=== PATIENT | female | born 1975 | race Caucasian/White ===

== ENCOUNTER 2023-01-28 13:09 | Outpatient (CLI) | payer OTHER, SELFPAY ==
--- NOTE | 2023-01-28 13:20 | CRLHL7_ITS ---
For Patients: As a result of the Century Cures Act, medical imaging exams and procedure reports are released immediately into your electronic medical record. You may view this report before your referring provider. If you have questions, please contact your health care provider. BILATERAL SCREENING MAMMOGRAM WITH COMPUTER-AIDED DETECTION AND TOMOSYNTHESIS TECHNIQUE: CC and MLO views were obtained. These mammographic images have been obtained using full-field digital technique. These mammographic images were interpreted with the benefit of computer-aided detection. Breast Tomosynthesis was used in this interpretation. COMPARISON FILM: 05/15/21, 05/13/20, 04/25/19. FINDINGS: The breasts are heterogeneously dense, which may obscure small masses IMPRESSION: There is no radiographic evidence for malignancy. ASSESSMENT: BI-RADS Category 1: Negative RECOMMENDATION: Routine screening mammogram in 1 year. A lay language report of this examination will be provided to the patient. David Medeiros M.D. Diagnostic Radiologist [email or web address] DAVID/Dictated by: David Medeiros MD @ 01/31/2023 11:39:00 AM (Electronically Signed)
== END 2023-01-28 13:10 | disposition home or self-care (01) ==
LOC: MAMMO 13:10
PROVIDERS: PCP Family Medicine; Visit Provider Family Medicine
DX: Z12.31 Encounter for screening mammogram for malignant neoplasm of breast (principal); R92.2 Inconclusive mammogram
CPT/HCPCS: 77063; 77067

== ENCOUNTER 2024-02-07 17:41 | Outpatient (CLI) | payer OTHER, SELFPAY ==
--- NOTE | 2024-02-07 18:00 | MM_ITS ---
Patient: TAMIKA DUMONT Facility:?[facility] Patient ID:?[id number] Site Patient ID:?[id number]. Site :?[id number] Study:?XRay-Breast Bilateral 3D screening mammogram w/cad-02/07/2024 6:02:10 PM Ordering Physician:Zandra Final Report: BILATERAL SCREENING MAMMOGRAM WITH COMPUTER-AIDED DETECTION AND TOMOSYNTHESIS TECHNIQUE: CC and MLO views were obtained. These mammographic images have been obtained using full-field digital technique. These mammographic images were interpreted with the benefit of computer-aided detection. Breast Tomosynthesis was used in this interpretation. COMPARISON FILM: 01/28/23, 05/15/21, 05/13/20. FINDINGS: The breasts are heterogeneously dense, which may obscure small masses IMPRESSION: There is no radiographic evidence for malignancy. ASSESSMENT: BI-RADS Category 2: Benign RECOMMENDATION: Routine screening mammogram in 1 year. A lay language report of this examination will be provided to the patient. David Medeiros M.D. Diagnostic Radiologist [email or web address] VARUN/mel R& Transcribed: 5:17 p.m. DAVID/Dictated by: David Medeiros MD @ 02/09/2024 1:20:00 PM Signed by:?David Medeiros MD @02/09/2024 8:29:58 PM (Electronic Signature)
== END 2024-02-07 17:42 | disposition home or self-care (01) ==
LOC: MAMMO 17:42
PROVIDERS: PCP Family Medicine; Visit Provider Family Medicine
DX: Z12.31 Encounter for screening mammogram for malignant neoplasm of breast (principal); R92.2 Inconclusive mammogram
CPT/HCPCS: 77063; 77067

== ENCOUNTER 2025-01-18 11:04 | Outpatient (CLI) | payer OTHER, SELFPAY | END 2025-01-18 11:05 | disposition home or self-care (01) | LOC: NFLDREF 01-22 18:09 | PROVIDERS: PCP Family Medicine; Referring Provider Family Medicine; Visit Provider Family Medicine | DX: R51.9 Headache, unspecified (principal); G89.29 Other chronic pain; Z83.79 Family history of other diseases of the digestive system | CPT/HCPCS: 86231; 86258; 86364 ==

== ENCOUNTER 2025-02-28 15:08 | Outpatient (CLI) | payer OTHER, SELFPAY ==
--- NOTE | 2025-02-28 15:20 | CRLHL7_ITS ---
For Patients: As a result of the Century Cures Act, medical imaging exams and procedure reports are released immediately into your electronic medical record. You may view this report before your referring provider. If you have questions, please contact your health care provider. INDICATION: BILATERAL SCREENING MAMMOGRAM, ASYMPTOMATIC 49 Y/O FEMALE COMPARISON: 02/07/2024, 01/28/2023, 05/15/2021 TECHNIQUE: Digital mammogram in CC and MLO projections including computer-aided detection (CAD) and tomosynthesis. BREAST COMPOSITION: The breasts are heterogeneously dense, which may obscure small masses. FINDINGS: No suspicious findings. ASSESSMENT: BI-RADS 2 Benign RECOMMENDATION: Annual screening mammogram. A lay language report of this examination will be provided to the patient. Dictated by: David Medeiros MD @ 03/01/2025 12:56:51 (Electronically Signed)
== END 2025-02-28 15:09 | disposition home or self-care (01) ==
PROVIDERS: PCP Family Medicine; Visit Provider Family Medicine
DX: Z12.31 Encounter for screening mammogram for malignant neoplasm of breast (principal); R92.333 Mammographic heterogeneous density, bilateral breasts
CPT/HCPCS: 77063; 77067

== ENCOUNTER 2025-04-24 15:14 | Outpatient (CLI) | payer OTHER, SELFPAY ==
--- NOTE | 2025-04-24 15:30 | MR_ITS ---
EXAM: MRI of the RIGHT KNEE, without contrast CLINICAL INFORMATION: Female, 50 years old, with right knee pain. INDICATION: Evaluate for ACL tear. PRIOR SURGERY: None reported. PLAIN FILMS: None available. COMPARISONS: No prior MRIs available. TECHNICAL INFORMATION: Using a 1.5T MR scanner and a localizing surface coil: sagittals: PD, PDFS coronals: PD, T2FS axials: PD, PDFS SEDATION: None CONTRAST: None FINDINGS: Knee joint: Effusion: Mild-moderate right knee effusion. Popliteal cyst: Tiny, unruptured popliteal (Renner's) cyst. Loose bodies: None. Subcutaneous and extra-articular soft tissues: Unremarkable. Ligaments: ACL: Full-thickness disruption of the ACL (sagittal PDFS series 9 images 14 & 15 and axial T2FS series 4 image 16). PCL: Intact PCL, without acute or chronic injury. MCL: Intact MCL superficial and deep layers, without injury. LCL: Intact LCL, without injury. Posterolateral corner: No posterolateral corner soft tissue injury. Popliteus, biceps femoris, iliotibial band, popliteofibular ligament and lateral gastrocnemius are intact. Posteromedial corner: No posteromedial corner soft tissue injury. Semimembranosus, pes anserine tendons and posterior oblique ligament are without injury, tendinopathy or bursitis. Extensor mechanism: Patellar tendon: Intact, without tendinopathy. Quadriceps tendon: Intact, without tendinopathy. Retinacula: Medial and lateral retinacula are intact. Fat pads: Unremarkable infrapatellar Hoffa's, quadriceps and prefemoral fat pads. Medial compartment: Medial meniscus: Full thickness radial tearing of the posterior root the medial meniscus measuring 9 mm (sagittal PDFS series 9 images 16-18). Meniscal extrusion measures 5 mm. Medial femoral condyle & tibial plateau: Broad-based grade II chondromalacia throughout the central, weightbearing aspect of the medial compartment, with minimal marginal osteophytosis. Lateral compartment: Lateral meniscus: No articular surface, meniscosynovial junction or root tear. No displacement, extrusion or parameniscal cyst. Lateral femoral condyle: No chondromalacia or osteochondral abnormality. Lateral tibial plateau: No chondromalacia or osteochondral abnormality. Patellofemoral joint: Patella: No chondromalacia or osteochondral abnormality. Trochlea: No chondromalacia or osteochondral abnormality. Proximal tibiofibular joint: Unremarkable, without evidence of ligament sprain injury, joint effusion or adjacent marrow edema. Bones: Mild edema-like signal is present throughout the posterior aspect of the medial tibial plateau. IMPRESSION: 1. Full thickness disruption of the ACL with associated contusion of the posterior medial tibial plateau. 2. Full-thickness radial tear of the medial meniscal posterior measuring 9 mm, with 5 mm of meniscal extrusion. 3. Minimal osteoarthritis of the medial compartment. 4. Mild-moderate knee joint effusion with a tiny, unruptured popliteal (Renner's) cyst. 5. No PCL, MCL, or LCL sprain/tear. 6. No lateral meniscal tear. 7. No osteochondral abnormality of the lateral or patellofemoral compartment. BC Electronically signed on 04/25/2025 10:11:00 AM by Greg López M.D.
== END 2025-04-24 15:15 | disposition home or self-care (01) ==
LOC: MRI 15:15
PROVIDERS: PCP Family Medicine; Visit Provider Orthopaedic Surgery Sports Medicine
DX: M25.561 Pain in right knee (principal); S83.511A Sprain of anterior cruciate ligament of right knee, initial encounter; S83.206A Unspecified tear of unspecified meniscus, current injury, right knee, initial encounter; M25.461 Effusion, right knee; M71.21 Synovial cyst of popliteal space [Baker], right knee
CPT/HCPCS: 73721

== ENCOUNTER 2025-05-13 17:15 | Outpatient (CLI) | payer OTHER, SELFPAY | END 2025-05-13 17:16 | disposition home or self-care (01) | PROVIDERS: PCP Family Medicine; Visit Provider Physician Assistant | DX: E55.9 Vitamin D deficiency, unspecified (principal); L65.9 Nonscarring hair loss, unspecified; R41.89 Other symptoms and signs involving cognitive functions and awareness | CPT/HCPCS: 83001; 84443 ==

== ENCOUNTER 2025-08-21 08:06 | Day surgery (SDC) | payer OTHER, SELFPAY ==
[2025-08-21] VITALS (15 sets, daily range): BP systolic 96–137; BP diastolic 65–95; PULSE 61–101; RESP 16–21; TEMP 36.3–37.3; O2SAT 96–100; BMI 29.9
--- NOTE | 2025-08-21 08:55 | W.PM.H&PU ---
History & Physical Update History & Physical Update H&P Reviewed and patient assessed: No changes noted
--- NOTE | 2025-08-21 09:29 | P.ANES_ITS ---
Anesthesia Charges Start Date/Time Anesthesia Start Date: 08/21/25 Anesthesia Start Time: 10:01 Stop Date/Time Anesthesia Stop Date: 08/21/25 Anesthesia Stop Time: 12:10 Coding CPT Codes CPT Codes: ANESTH KNEE JOINT SURGERY - 95870 ([id number]) P2 - PATIENT W/MILD SYST DISEASE, QK - CONCRETE BUSTER OPERATOR 2-4 CNCRNT ANES PROC, QX - GRITTING MACHINE OPERATOR SVC W/ MD MED DIRECTION
--- NOTE | 2025-08-21 09:29 | W.ANESCHARGE ---
Anesthesia Charges Start Date/Time Anesthesia Start Date: 08/21/25 Anesthesia Start Time: 10:01 Stop Date/Time Anesthesia Stop Date: 08/21/25 Anesthesia Stop Time: 12:10 Coding CPT Codes CPT Codes: ANESTH KNEE JOINT SURGERY - 47707 ([id number]) P2 - PATIENT W/MILD SYST DISEASE, QK - ENGINEERING INSTRUCTOR 2-4 CNCRNT ANES PROC, QX - DRY ROLLER SVC W/ MD MED DIRECTION
[2025-08-21] MEDS: LACTATED RINGERS 1000 ML 1,000 ML 100 ML IV ×2 (09:36→11:25)
[2025-08-21] MEDS: SODIUM CHLORIDE 0.9 % (FLUSH) 10 ML SYRINGE IVF (09:37)
[2025-08-21] MEDS: MIDAZOLAM HCL 1 MG/ML inj IVP (09:49)
--- NOTE | 2025-08-21 10:02 | SUR.PREOP ---
TIME?OUT:?0949 PT/RN/MDA?VERIFICATION?OF?SURGICAL?SITE,?PROCEDURE,?AND?CONSENT OBTAINED?PRIOR?TO?INVASIVE?PROCEDURE.
--- NOTE | 2025-08-21 11:49 | W.PM.NB ---
Nerve Block Nerve Block Time Seen by Provider: 09:55 Date Seen: 08/21/25 Type of block requested by surgeon for post-operative analgesia: popliteal Side: right Time out performed: Yes Verification of patient name: Yes Verification of date of : Yes Site marking: site marked Name of person performing procedure: Florentin Continuous monitoring Was continuous monitoring of O2 sat, B/P, laboratory monitor, recorded every 15 minutes?: Yes Procedure Checklist: sterile prep, needles and gloves Ultrasound guided. Images saved: Yes Medications given in 5ml increments after negative aspiration: Marcaine %: 0.25 mL: 17 Needle gauge: 22 and Exparel mL: 3 Patient tolerated procedure well: Yes Additional comments: Needle noted adjacent to nerve Block Charges Block Charge (with Pro Fee): Sciatic Nerve Use of Ultrasound Machine for Block: Yes- US Guidance/pain block
--- NOTE | 2025-08-21 11:50 | W.PM.NB ---
Nerve Block Nerve Block Time Seen by Provider: 09:55 Date Seen: 08/21/25 Type of block requested by surgeon for post-operative analgesia: adductor canal Side: right Time out performed: Yes Verification of patient name: Yes Verification of date of : Yes Site marking: site marked Name of person performing procedure: Florentin Continuous monitoring Was continuous monitoring of O2 sat, B/P, radiation monitor, recorded every 15 minutes?: Yes Procedure Checklist: sterile prep, needles and gloves Ultrasound guided. Images saved: Yes Medications given in 5ml increments after negative aspiration: Marcaine %: 0.25 mL: 10 Needle gauge: 20 and Exparel mL: 7 Patient tolerated procedure well: Yes Block Charges Block Charge (with Pro Fee): Femoral Nerve Use of Ultrasound Machine for Block: Yes- US Guidance/pain block
--- NOTE | 2025-08-21 11:54 | PM.ORPRC ---
Procedure Note Date of procedure: 08/21/25 Procedure: PREOPERATIVE DIAGNOSIS: 1. Right knee ACL tear 2. Right knee medial meniscus posterior root tear POSTOPERATIVE DIAGNOSIS: 1. Right knee ACL tear 2. Right knee medial meniscus posterior root tear PROCEDURE: 1. Right knee arthroscopically assisted ACL reconstruction with graftlink allograft 2. Right knee arthroscopic medial meniscus posterior root repair 3. Intraoperative fluoroscopy operated and interpreted by Fernando Shi M.D. for intraoperative evaluation of femoral button positioning. Fluoroscopy time was 2 seconds. SURGEON: Fernando Shi M.D. QUEBRACHO TANNER: Prakash HUDSON; Andres Lerma PA-C. Of note, an food and beverage assistant was critical for this case to aid in patient positioning, knee manipulation, instrument exchange, and closure. ANESTHESIA: Spinal plus femoral nerve block EBL: 10 mL TOURNIQUET: 90 minutes at 250 torr IMPLANTS: Arthrex femoral tight rope button and tibial ABS button along with a backup on the tibial fixation with a 4.75 mm peek swivelock suture anchor; For medial meniscus root repair, Arthrex Suturelok (x1) COMPLICATIONS: None evident INDICATIONS: The patient is a pleasant 50-year-old female. They have experienced a right knee injury resulting in knee instability. MRI was obtained and confirmed complete ACL disruption, consistent with the physical exam. The MRI also suggested a posterior root medial meniscus tear with some extrusion. Given the findings, as well as the patient's desire to remain physically active with cutting/pivoting type activities, surgery was recommended. FINDINGS: Exam under anesthesia revealed positive Natalee's grade 2 B. Thud-clunk pivot shift. Stable posterior drawer. Stable to varus and valgus stress at 0 and 30?. The diagnostic arthroscopy showed posterior root medial meniscus tear that was nearly complete with some subtle capsular attachments still. Unstable posterior root excessive extrusion into the joint compartment. 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 Grade 2 chondromalacia patellofemoral. Intact PCL. Intact lateral meniscus. DESCRIPTION OF PROCEDURE: After a thorough discussion of risks, benefits, and alternatives, the patient was brought to the operating room and placed upon the operating table. Induction of anesthesia was undertaken as previously noted. 1 g IV Ancef was administered within 1 hr of incision preoperatively. Appropriate time-out was performed identifying proper patient, site, and procedure. The right lower extremity was prepped and draped in the appropriate sterile fashion using ChloraPrep. The limb was exsanguinated and tourniquet inflated. Anterolateral and anteromedial portals were established with an 11 blade, and a diagnostic arthroscopy was performed. This identified the findings as noted above. Following the diagnostic arthroscopy, the medial meniscal root was debrided with a 4.0 mm torpedo shaver and arthroscopic rasp to freshen the meniscal edge. This also allowed us to debride some the synovium and the tibial surface. The drill guide was utilized, a drill pin passed, and after confirming proper positioning, the stylus was removed and a Nitinol wire passed through the cannulated drill bit. This allowed us to shuttle a FiberLink. The FiberLink then allows to shuttle the Sutureloc device. After passing this and back loading it to confirm secure holding within the proximal tibia, 1 of the suture tails was passed in a vertical mattress fashion through the meniscus. This was done by passing 1 of the tails through followed by the FiberLink loop through and allowing this to shuttle that original suture back down through the meniscus. This was then shuttled through its respective link in the Sutureloc device. Prior to securing this fully, the 2nd suture was passed slightly more lateral allowing a rip-stop type of configuration. Thereafter, the knee was cycled multiple times and the sutures were re-tensioned. Excellent reapproximation of the meniscus was achieved. We then turned our attention to the ACL reconstruction: The graft had been thawing on the back table inside the package in warm saline. Once this was properly thawed, it was prepared with the passing sutures and the femoral tight rope button. It was then placed on tension, and sized. It was approximately a 10 mm diameter graft. While the graft was being prepared, simultaneously, the remaining ACL stump was debrided with a combination of shaver and basket forceps. After evaluating the current fibers of the existing ACL stump, we drilled the tunnels in an independent manner for anatomic tunnel positioning. A 10 mm flip cutter was utilized for the femoral tunnel and for the tibial tunnel. After preparing the graft and drilling tunnels, the graft was passed without difficulty and the femoral button was directly visualized to exit the femoral tunnel and the button was flipped. C-arm fluoroscopic imaging confirmed proper flipping of the femoral button and was apposed against the femoral cortex. The knee was then cycled 35+ times with tension on the graft. The internal brace sutures were secured with a 4.75 mm peek SwiveLock suture anchor. Thereafter, the tibial ABS button was then placed, and the tibial sutures secured over this with the knee in full extension. The white sutures were tied over top of the button. Excellent tension on the graft was achieved. A Natalee test was performed again, and found to be stable grade 1A. The graft was reprobed on the inside of the knee and again found to be taut and stable. At this stage, closure was performed with 2-0 Vicryl and 4-0 Monocryl to close the subcutaneous and subcuticular layers, respectively. Dressings were applied, tourniquet deflated, and the T scope hinged knee brace was applied. The patient was awoken from anesthesia and transferred to the PACU in stable condition. PLAN: 1. Toe-touch weightbear operative extremity until quad control has been restored. Crutch / walker ambulation assistance PRN. 2. Ice, acetaminophen and/or ibuprofen, and Oxycodone for pain as needed. 3. Knee range of motion and quad sets/straight leg raise regularly 4. Follow up with PA visit in 1-2 weeks for a wound check.
--- NOTE | 2025-08-21 12:25 | P.ANES_ITS ---
Anesthesia Charges Start Date/Time Anesthesia Start Date: 08/21/25 Anesthesia Start Time: 10:01 Stop Date/Time Anesthesia Stop Date: 08/21/25 Anesthesia Stop Time: 12:10 Coding CPT Codes CPT Codes: ANESTH KNEE JOINT SURGERY - 49325 ([id number]) QK - MEDIA PRODUCER 2-4 CNCRNT ANES PROC, QX - BYPRODUCTS EXTRACTOR SVC W/ MED DIRECTION
--- NOTE | 2025-08-21 12:25 | W.ANESCHARGE ---
Anesthesia Charges Start Date/Time Anesthesia Start Date: 08/21/25 Anesthesia Start Time: 10:01 Stop Date/Time Anesthesia Stop Date: 08/21/25 Anesthesia Stop Time: 12:10 Coding CPT Codes CPT Codes: ANESTH KNEE JOINT SURGERY - 10076 ([id number]) QK - LEAD SPRINKLER 2-4 CNCRNT ANES PROC, QX - TIME CLOCK REPAIRER SVC W/ MED DIRECTION
--- NOTE | 2025-08-21 13:54 | SUR.PHASEII ---
PT in room with patient for crutch training.
== END 2025-08-21 14:26 | disposition home or self-care (01) ==
LOC: OR 08:07
PROVIDERS: PCP Family Medicine; Visit Provider Orthopaedic Surgery Sports Medicine
PROC: (CPT 27428; principal; 2025-08-21 10:15)
DX: S83.511A Sprain of anterior cruciate ligament of right knee, initial encounter (principal); S83.241A Other tear of medial meniscus, current injury, right knee, initial encounter; G89.18 Other acute postprocedural pain
CPT/HCPCS: 29888; 29882; 01400; 64445; 64447; 73560; 76000; 76942; 97116; 97161; C1713; J0665; J0666; J0690; J1100; J2250; J2371; J2405; J2704; J3010; J7120; L1833